=== PATIENT | female | born 1995 | race American Indian/Alaskan Native ===

== ENCOUNTER 2018-02-23 17:55 | Outpatient (CLI) | payer MEDICAID ==
[2018-02-23] MEDS ORDERED: LACTATED RINGERS 500 ML IV ONE (18:03)
[2018-02-23 18:37] VITALS: BP 116/60
[2018-02-23 19:58] LABS: Bilirubin,Urine NEG (Negative); Blood,Urine NEG (Negative); Color,Urine Yellow (Yellow); Mucus,Urine FEW /HPF; Protein,Urine <15 mg/dL mg/dL (Negative)
[2018-02-23] MEDS ORDERED: BRETHINE SUB-Q ONE (20:44)
[2018-02-23] MEDS ORDERED: BRETHINE ONE (21:04)
== END 2018-02-23 21:58 | disposition home or self-care (01) ==
LOC: TRG 17:55
PROVIDERS: ATTEND Obstetrics & Gynecology
DX: O47.02 False labor before 37 completed weeks of gestation, second trimester (principal); Z3A.29 29 weeks gestation of pregnancy
CPT/HCPCS: 36415; 59025; 81001; 82731; J3105; J7120

== ENCOUNTER 2018-03-25 12:44 | Inpatient (IN) | payer MEDICAID ==
[2018-03-25] MEDS ORDERED: NARCAN 0.4 MG/1 ML IV PRN (13:20)
[2018-03-25] MEDS ORDERED: BRETHINE IVP PRN (13:20)
[2018-03-25] MEDS ORDERED: POLYCILLIN/NS 2 GM/100 ML 2 GM/100 ML BAG IV ONE (13:20)
[2018-03-25] MEDS ORDERED: MINERAL OIL PO PRN (13:20)
[2018-03-25] MEDS ORDERED: PITOCin/NS 30 UNIT/500ML 30 UNITS/500 ML BAG IV SCH (13:20)
[2018-03-25] MEDS ORDERED: STADOL IV PRN (13:20)
[2018-03-25] MEDS ORDERED: BRETHINE SUB-Q PRN (13:20)
[2018-03-25] MEDS ORDERED: ePHEDrine SULFATE IV PRN (13:20)
[2018-03-25] MEDS ORDERED: XYLOCAINE 2% INFILTRATI ONE ×2 (13:20→20:40)
[2018-03-25] MEDS ORDERED: ZOFRAN IV PRN ×2 (13:20→22:30)
--- NOTE | 2018-03-25 13:29 | History and Physical Report ---
History of Present Illness Date of examination: 03/25/18 Chief complaint: rupture of membranes History of present illness: Pt is a 22 year old -Israeli primigravida GALE 05/05/18 at 34w1d who presents with rutpure of membranes since last night. She reports irregular contractions and denies vaginal bleeding. She has had care at [facility] since 17 wks complicated by two admissions for labor at [facility] s/ magnesium sulfate, two courses of betamethasone, with arrest at 5 cm at most recent admission in February 2018. She is GBS unknown. Past History Past Medical History: no pertinent history Past Surgical History: other (lymph node biopsy ) Family/Genetic History: cancer Social history: no significant social history - Obstetrical History Expected Date of Delivery: 05/05/18 Actual Gestation: 34 Week(s) 1 Day(s) : 1 Medications and Allergies Allergies Allergy/AdvReac Type Severity Reaction Status Date / Time No Known Allergies Allergy Unverified 02/23/18 18:03 Review of Systems All systems: negative - Vital Signs Vital signs: Vital Signs Temp Resp 99.4 F 18 03/25/18 13:14 03/25/18 13:14 Temp Pulse Resp BP Pulse Ox 99.4 F 18 03/25/18 13:14 03/25/18 13:14 - Physical Exam Breasts: Positive: deferred Cardiovascular: Regular rate Lungs: Positive: Clear to auscultation Abdomen: Positive: soft (gravid ) Genitourinary (Female): Positive: normal external genitalia Uterus: Positive: enlarged (gravid ) Extremities: Positive: normal - Obstetrical FHR: auscultation normal Cervical Dilatation: 5 (per RN ) Uterine Contraction Pattern: Irregular Uterine Tone Measurement Phase: Resting Uterine Contraction Intensity: Mild Results All other labs normal. Assessment and Plan A: IUP at 34w1d PPROM Advanced cervical dilation H/o labor with two admissions at [facility] s/ magnesium sulfate, betamethasone x 2 courses GBS unknown P: Admit to labor and delivery GBS prophylaxis Routine intrapartum care NICU aware Closely monitor maternal and status
[2018-03-25] MEDS ORDERED: PITOCin/NS 20 UNIT/1000ML DRIP 20 UNITS/1,000 ML BAG IV SCH ×2 (14:00→22:30)
[2018-03-25 14:27] LABS: Hematocrit 30.8 % (30.3-42.9); Hemoglobin 10.3 gm/dl (10.1-14.3); Mean Corpuscular HGB Conc 34 % (30-34); Mean Corpuscular Hemoglobin 30 pg (28-32); Mean Corpuscular Volume 89 fl (79-97); Platelet Count 253 K/mm3 (140-440); Red Blood Count 3.44 M/mm3 (3.65-5.03); Red Cell Distribution Width 13.6 % (13.2-15.2)
[2018-03-25] MEDS: LACTATED RINGERS 1,000 ML IV SCH ×2 (16:51→18:13)
[2018-03-25] MEDS ORDERED: AMPICILLIN/NS 1 GM/50 ML 1 GM/50 ML BAG IV SCH (17:22)
[2018-03-25] MEDS: SUBLIMAZE IV PRN ×2 (18:51→20:45)
[2018-03-25] MEDS ORDERED: METHERGINE IM ONE (21:04)
--- NOTE | 2018-03-25 21:40 | Procedure Note ---
OB Delivery Note - Delivery Date of Delivery: 03/25/18 Surgeon: CARTER MICHAEL Estimated blood loss: other (400 mL) - Vaginal Delivery presentation: vertex Delivery position: OP Intrapartum events: labor-<37 weeks, PROM->1hr before delivery, meconium , mult.variable deceleratio, uterine atony Delivery induction: oxytocin Delivery augmentation: pitocin Delivery monitor: external FHT, external uterine Route of delivery: Delivery placenta: spontaneous Episiotomy: none Delivery laceration: 2nd degree, vaginal side wall Delivery repair: vicryl Anesthesia: local, intravenous Delivery comments: Pt progressed to complete/complete/+2 and pushed to deliver a viable male over intact perineum via under IV anesthesia. Head delivered in LOP position, quickly followed by shoulders and body. placed on maternal abdomen and bulb suctioned. Cord clamped and cut and handed to NICU staff in attendance. Cord blood collected. Placenta delivered spontaneously. Vagina and perineum explored. Second degree perineal and vaginal side wall lacerations repaired with 2-0 and 3-0 Vicryl chuck a standard fashion. Uterus noted to be atonic at this time despite oxytocin infusion. Methergine 0.2 mg IM administered. Fundus firm and bleeding scant. EBL 400mL. - A at 1 minute: 8 at 5 minutes: 8 Gender: Male (2333g (5lb 2oz) @ 2033 pm)
[2018-03-25] MEDS ORDERED: BENADRYL PO PRN (22:30)
[2018-03-25] MEDS ORDERED: DULCOLAX PR PRN (22:30)
[2018-03-25] MEDS ORDERED: PHENERGAN PO PRN (22:30)
[2018-03-25] MEDS ORDERED: PHENERGAN PR PRN (22:30)
[2018-03-25] MEDS ORDERED: TUCKS PAD TP PRN (22:30)
[2018-03-25] MEDS ORDERED: DERMOPLAST TP PRN (22:30)
[2018-03-25] MEDS ORDERED: LANSINOH TP PRN ×2 (22:30)
[2018-03-25] MEDS ORDERED: MILK OF MAGNESIA PO PRN (22:30)
[2018-03-25] MEDS ORDERED: SODIUM CHLORIDE FLUSH SYRINGE 10 ML IV NR (22:30)
[2018-03-25] MEDS ORDERED: TYLENOL PO PRN (22:30)
[2018-03-25] MEDS: MOTRIN PO SCH (23:48)
[2018-03-26] MEDS ORDERED: METHERGINE IM ONE (00:02)
[2018-03-26] MEDS: COLACE PO SCH ×3 (00:07→22:40)
[2018-03-26] MEDS: FEOSOL PO SCH ×3 (00:07→22:39)
[2018-03-26] MEDS ORDERED: BOOSTRIX IM ONE (06:00)
[2018-03-26] MEDS ORDERED: M-M-R II VACCINE SUB-Q ONE (06:00)
[2018-03-26] MEDS: MOTRIN PO SCH ×3 (06:18→17:51)
[2018-03-26 10:58] LABS: Hematocrit 30.5 % (30.3-42.9)
--- NOTE | 2018-03-26 11:25 | Progress Note ---
Assessment and Plan A: PPD# 1 s/p at 34 wks, PPROM, h/o labor P: Routine care. Subjective - Subjective Date of service: 03/26/18 Principal diagnosis: s/p at 34 wks, PPROM, h/o labor Interval history: No overnight events. Patient reports: appetite normal, voiding normally, pain well controlled, ambulating normally : doing well, in NICU Objective - Vital Signs Latest vital signs: Vital Signs Temp Pulse Resp BP Pulse Ox 03/26/18 08:10 98.6 F 76 15 99/45 97 03/26/18 05:54 98.4 F 71 20 112/48 97 03/26/18 01:08 98.9 F 80 20 122/57 96 03/25/18 22:07 86 123/60 03/25/18 21:51 86 118/60 03/25/18 21:37 89 119/58 03/25/18 21:21 95 H 116/58 03/25/18 21:15 100.1 F H 03/25/18 21:07 97 H 128/57 03/25/18 20:52 115 H 132/63 03/25/18 20:45 20 03/25/18 20:37 129 H 146/61 03/25/18 20:23 102 H 147/55 03/25/18 20:07 88 126/59 03/25/18 19:37 96 H 133/60 03/25/18 19:21 86 113/57 03/25/18 19:08 82 108/52 03/25/18 18:52 79 127/62 03/25/18 18:00 98.6 F 16 03/25/18 17:21 81 104/51 03/25/18 17:00 98.1 F 18 03/25/18 14:32 88 114/61 03/25/18 13:14 99.4 F 18 Intake and Output 03/25/18 03/26/18 03/26/18 22:59 06:59 14:59 Intake Total 202.533 240 Output Total 300 Balance 202.533 -60 Intake: IV 202.533 Lactated Ringers 1,000 ml 170.833 @ 125 mls/hr IV DIRECT ELMA Rx#:[id number] PITOCin/NS 30 UNIT/500ML 31.700 30 units In 500 ml @ 2 mls/hr IV TITR ELMA Rx#: [id number] Oral 240 Output: Urine 300 Void 300 Other: Total, Intake Amount 240 Total, Output Amount 300 Estimated Blood Loss 400 - Exam Breasts: Present: deferred Cardiovascular: Present: Regular rate Lungs: Present: Clear to auscultation Abdomen: Present: soft Uterus: Present: fundal height at umbilicus Extremities: Present: normal - Labs Labs: Abnormal lab results 03/25/18 03/26/18 Range/Units 14:03 10:40 WBC 12.7 H (4.5-11.0) K/mm3 RBC 3.44 L (3.65-5.03) M/mm3 Hgb 10.0 L (10.1-14.3) gm/dl
[2018-03-26] MEDS: NORCO 5/325 PO PRN ×2 (11:34→22:40)
[2018-03-27] MEDS: NORCO 5/325 PO PRN ×2 (10:20→16:30)
[2018-03-27] MEDS: FEOSOL PO SCH (10:20)
[2018-03-27] MEDS: COLACE PO SCH (10:20)
[2018-03-27] MEDS: MOTRIN PO SCH (12:00)
--- NOTE | 2018-03-27 14:33 | Discharge Summary ---
Providers - Providers Date of Admission: 03/25/18 13:32 Date of discharge: 03/27/18 Attending physician: CARTER MICHAEL 03/25/18 22:30 Consult to Administrative Dietitian [CONS] Routine Reason For Exam: assistance with , SNS Primary care physician: CARTER MICHAEL Hospitalization Reason for admission: labor, IUP at term Delivery: Episiotomy: none Laceration: 2nd degree Other procedures: none Discharge diagnosis: IUP at term delivered baby: male Condition at discharge: Good Disposition: DC-01 TO HOME OR SELFCARE Plan - Discharge Medications Prescriptions: Ferrous Sulfate [Feosol 325 MG tab] 325 mg PO BID #60 tablet HYDROcodone/APAP 5-325 [[place] 5/325] 1 each PO Q6HR PRN #30 tablet PRN Reason: Pain Ibuprofen [Motrin] 800 mg PO Q8HR PRN #30 tablet PRN Reason: Pain, Moderate (4-6) - Provider Discharge Summary Activity: routine, no sex for 6 weeks, no heavy lifting 4 weeks, no strenuous exercise Diet: routine Additional instructions: [] Smoking cessation referral if applicable(refer to patient education folder for contact #) [] Refer to [facility] Booklet Call your doctor immediately for: * Fever > 100.5 * Heavy vaginal bleeding ( >1 pad per hour) * Severe persistent headache * Shortness of breath * Reddened, hot, painful area to leg or breast * Drainage or odor from incision. * Keep incision clean and dry at all times and follow doctor's instructions regarding bathing/showering - Follow up plan Follow up: CARTER MICHAEL MD [Primary Care Provider] - 14 Days
[2018-03-27 19:18] VITALS: BP 110/54
== END 2018-03-27 17:00 | disposition home or self-care (01) | DRG 775 ==
LOC: TRG 12:44 → LD 13:32 → OB 22:28
PROVIDERS: ADMIT Obstetrics & Gynecology; ATTEND Obstetrics & Gynecology
PROC: 10E0XZZ Delivery of Products of Conception, External Approach (ICD-10-PCS; principal; 2018-03-25)
PROC: 0KQM0ZZ Repair Perineum Muscle, Open Approach (ICD-10-PCS; 2018-03-25)
PROC: 3E0234Z Introduction of Serum, Toxoid and Vaccine into Muscle, Percutaneous Approach (ICD-10-PCS; 2018-03-26)
DX: O42.913 Preterm premature rupture of membranes, unspecified as to length of time between rupture and onset of labor, third trimester (principal); Z3A.34 34 weeks gestation of pregnancy; Z37.0 Single live birth; Z80.9 Family history of malignant neoplasm, unspecified; O70.1 Second degree perineal laceration during delivery; Z23 Encounter for immunization
CPT/HCPCS: 36415; 85014; 85018; 85027; 86592; 86850; 86900; 86901; 88307; 90471; 90715; 96372; 99211; G0008; G0463; J0290; J2210; J2590; J3010; J7120

== ENCOUNTER 2019-07-08 18:12 | Outpatient (CLI) | payer MEDICAID ==
[2019-07-08] MEDS ORDERED: LACTATED RINGERS 500 ML IV ONE (18:17)
[2019-07-08 18:30] VITALS: BP 108/58
[2019-07-08] MEDS ORDERED: CELESTONE SOLUSPAN IM SCH (18:30)
== END 2019-07-08 19:05 | disposition home or self-care (01) ==
LOC: TRG 18:12
PROVIDERS: ATTEND Obstetrics & Gynecology
DX: O26.893 Other specified pregnancy related conditions, third trimester (principal); Z3A.33 33 weeks gestation of pregnancy
CPT/HCPCS: 59025; 96372; J0702

== ENCOUNTER 2019-07-09 18:37 | Outpatient (CLI) | payer MEDICAID ==
[2019-07-09] MEDS ORDERED: CELESTONE SOLUSPAN IM ONE (18:59)
== END 2019-07-09 19:22 | disposition home or self-care (01) ==
LOC: TRG 18:37
PROVIDERS: ATTEND Obstetrics & Gynecology
DX: O47.03 False labor before 37 completed weeks of gestation, third trimester (principal); O09.213 Supervision of pregnancy with history of pre-term labor, third trimester; Z3A.33 33 weeks gestation of pregnancy
CPT/HCPCS: 96372; J0702

== ENCOUNTER 2019-07-17 01:34 | Inpatient (IN) | payer MEDICAID ==
[2019-07-17] MEDS ORDERED: LACTATED RINGERS 1,000 ML IV ONE (02:10)
[2019-07-17] MEDS ORDERED: ePHEDrine SULFATE 50 MG/1 ML INJ IV PRN (02:52)
[2019-07-17] MEDS ORDERED: ONDANSETRON 4 MG/2 ML INJ IV PRN ×2 (02:52→15:00)
[2019-07-17] MEDS ORDERED: AMPICILLIN/NS 2 GM/100 ML 2 GM/100 ML BAG IV ONE (02:52)
[2019-07-17] MEDS ORDERED: MINERAL OIL 30 ML ORAL LIQD PO PRN (02:52)
[2019-07-17] MEDS ORDERED: LIDOCAINE (2%) 20 MG/1 ML VIAL 20 ML MDV INFILTRATI ONE (02:52)
[2019-07-17] MEDS ORDERED: NALOXONE 0.4 MG/1 ML INJ IV PRN (02:52)
[2019-07-17] MEDS ORDERED: BUTORPHANOL 2 MG/1 ML INJ IV PRN (02:52)
[2019-07-17] MEDS ORDERED: TERBUTALINE 1 MG/1 ML INJ IVP PRN (02:52)
[2019-07-17] MEDS ORDERED: fentaNYL 100 MCG/2 ML INJ IV PRN (02:52)
[2019-07-17] MEDS ORDERED: TERBUTALINE 1 MG/1 ML INJ SUB-Q PRN (02:52)
[2019-07-17] MEDS ORDERED: BETAMET ACET/BETAMET NA PH 6 MG/ML INJ 5 ML MDV IM ONE (02:56)
[2019-07-17] MEDS ORDERED: OXYTOCIN 20 UNIT/1000ML DRIP 20 UNITS/1,000 ML BAG IV SCH ×2 (03:00→15:00)
[2019-07-17] MEDS: LACTATED RINGERS 1,000 ML IV SCH ×2 (04:00→05:32)
[2019-07-17 04:56] LABS: Hematocrit 29.1 % (30.3-42.9); Hemoglobin 9.7 gm/dl (10.1-14.3); Mean Corpuscular HGB Conc 33 % (30-34); Mean Corpuscular Volume 91 fl (79-97); Platelet Count 254 K/mm3 (140-440); Red Blood Count 3.18 M/mm3 (3.65-5.03); Red Cell Distribution Width 13.2 % (13.2-15.2)
[2019-07-17 05:24] LABS: Bacteria,Urine 1+ /HPF (Negative); Bilirubin,Urine NEG (Negative); Blood,Urine SM (Negative); Calcium Oxalate Crystals,Urine 3+; Color,Urine Yellow (Yellow); Mucus,Urine 2+ /HPF; Protein,Urine <15 mg/dL mg/dL (Negative); Urobilinogen,Urine < 2.0 mg/dL (<2.0)
[2019-07-17] MEDS: OXYTOCIN DRIP 30 UNITS/500 ML BAG IV SCH ×11 (08:03→13:44)
[2019-07-17] MEDS: AMPICILLIN/NS 1 GM/50 ML 1 GM/50 ML BAG IV SCH ×2 (08:04→12:41)
--- NOTE | 2019-07-17 13:24 | History and Physical Report ---
History of Present Illness Date of examination: 07/17/19 Date of admission: 07/17/19 02:11 Chief complaint: contractions History of present illness: Desiree is a 23 yo G P at weeks here for contractions. She was noted to be 5 cm and progressed to 6 cm with srom clear. She is patient of [facility]. Past History Past Medical History: other (h/o ptl) Past Surgical History: other (lymph node biopys) PATIENT TRANSPORTATION DRIVER History: chlamydia Social history: single. denies: smoking, alcohol abuse, prescription drug abuse - Obstetrical History Expected Date of Delivery: 08/20/19 Actual Gestation: 35 Week(s) 1 Day(s) : 2 Para: 1 Hx # Term Pregnancies: 0 Number of Pregnancies: 1 Spontaneous Abortions: 0 Induced : 0 Number of Living Children: 1 Medications and Allergies Allergies Allergy/AdvReac Type Severity Reaction Status Date / Time No Known Allergies Allergy Verified 07/08/19 18:17 Home Medications Medication Instructions Recorded Confirmed Last Taken Type Pnv No.95/Ferrous Fum/Folic AC 1 each PO DAILY 03/25/18 07/17/19 07/06/19 History [ Formula Tablet] Active Meds: Active Medications Butorphanol Tartrate (Stadol) 2 mg IV Q2H PRN PRN Reason: Pain , Severe (7-10) Ephedrine Sulfate (Ephedrine Sulfate) 10 mg IV Q2M PRN PRN Reason: Hypotension Fentanyl (Sublimaze) 100 mcg IV Q2H PRN PRN Reason: Labor Pain Oxytocin/Sodium Chloride (Pitocin/Ns 20 Unit/1000ml Drip) 20 units in 1,000 mls @ 125 mls/hr IV DIRECT [facility]MA Oxytocin/Sodium Chloride (Pitocin/Ns 30 Unit/500ml) 30 units in 500 mls @ 2 mls/hr IV TITR [facility]MA; Protocol Last Admin: 07/17/19 12:49 Dose: 11 ml/hr, 11 mls/hr Documented by: Lactated Ringer's (Lactated Ringers) 1,000 mls @ 125 mls/hr IV DIRECT [facility]MA Last Admin: 07/17/19 05:32 Dose: 125 mls/hr Documented by: Ampicillin Sodium (Ampicillin/Ns 1 Gm/50 Ml) 1 gm in 50 mls @ 100 mls/hr IV Q4HR ELMA; Protocol Last Admin: 07/17/19 12:41 Dose: 100 mls/hr Documented by: Mineral Oil (Mineral Oil) 30 ml PO QHS PRN PRN Reason: Constipation Naloxone HCl (Naloxone) 0.1 mg IV Q2MIN PRN PRN Reason: Res Rate </= 8 or 02 SAT < 92% Ondansetron HCl (Zofran) 4 mg IV Q8H PRN PRN Reason: Nausea And Vomiting Terbutaline Sulfate (Brethine) 0.25 mg SUB-Q ONCE PRN PRN Reason: Hyperstimulation/Hypertonicity Terbutaline Sulfate (Brethine) 0.25 mg IVP ONCE PRN PRN Reason: Hyperstimulation/Hypertonicity Review of Systems All systems: negative Genitourinary: contractions - Vital Signs Vital signs: Vital Signs Temp Pulse Resp BP 98.4 F 91 H 18 109/62 07/17/19 02:03 07/17/19 02:03 07/17/19 02:03 07/17/19 02:03 Temp Pulse Resp BP Pulse Ox 98.1 F 81 14 108/56 07/17/19 08:05 07/17/19 12:51 07/17/19 08:05 07/17/19 12:51 - Physical Exam Breasts: Positive: normal Cardiovascular: Regular rate, Normal S1 Lungs: Positive: Clear to auscultation, Normal air movement Abdomen: Positive: normal appearance, soft, normal bowel sounds. Negative: distention, tenderness, guarding Genitourinary (Female): Positive: normal external genitalia, normal perenium Vulva: both: normal Vagina: Positive: normal moisture Uterus: Positive: normal size Anus/Rectum: Positive: normal perianal skin Extremities: Positive: normal Deep Tendon Reflex Grade: Normal +2 - Obstetrical Cervical Dilatation: 5 Cervical Effacement Percentage: 100 station: -1 Uterine Tone Measurement Phase: Contraction Uterine Contraction Intensity: Moderate Results Result Diagrams: 07/17/19 04:00 Abnormal lab results 07/17/19 07/17/19 Range/Units 04:00 04:00 RBC 3.18 L (3.65-5.03) M/mm3 Hgb 9.7 L (10.1-14.3) gm/dl Hct 29.1 L (30.3-42.9) % Urine WBC (Auto) 7.0 H (0.0-6.0) /HPF All other labs normal. Assessment and Plan A/P HD#1 IUP 35 weeks PTL PPROM IVF, s/p two doses of bmz and resuscue dose of BMZ AROM clear Amp for GBS prophylaxis Pitocin for augmentation expect vaginal delivery
[2019-07-17] MEDS ORDERED: diphenhydrAMINE 25 MG CAP PO PRN (15:00)
[2019-07-17] MEDS ORDERED: cefTRIAXone/NS 1 GM/50 ML 1 GM/50 ML BAG IV SCH (15:00)
[2019-07-17] MEDS ORDERED: BISACODYL 10 MG RECT SUPP PR PRN (15:00)
[2019-07-17] MEDS ORDERED: LANOLIN/ZINC/DIMETHICONE (LANSINOH) 7 GM TP PRN (15:00)
[2019-07-17] MEDS ORDERED: KETOROLAC 30 MG/1 ML INJ IV PRN (15:00)
[2019-07-17] MEDS ORDERED: PROMETHAZINE 25 MG TAB PO PRN (15:00)
[2019-07-17] MEDS ORDERED: PROMETHAZINE 25 MG RECT SUPP PR PRN (15:00)
[2019-07-17] MEDS ORDERED: OXYTOCIN 10 UNIT/1 ML INJ ONE (15:00)
[2019-07-17] MEDS ORDERED: WITCH HAZEL/ GLYCERIN PAD TP PRN (15:00)
--- NOTE | 2019-07-17 15:04 | Procedure Note ---
OB Delivery Note - Delivery Date of Delivery: 07/17/19 Surgeon: DEBBIE VALERA Estimated blood loss: 200cc - Vaginal Delivery presentation: vertex Delivery position: OA Delivery augmentation: rupture of membranes, pitocin Delivery monitor: external FHT, external uterine Route of delivery: Delivery placenta: spontaneous Delivery cord: 3 umbilical vessels Episiotomy: none Delivery laceration: none Anesthesia: none Delivery comments: Excellent maternal effort resulted in of vigorous female at 1450 . Apgars 8/9. to maternal abdomen. Placenta delivered spontaneously and intact at 1455. Pitocin infusing. Cord clamped and cut. Bulb suction on abdomen. No lacerations noted. EBL 300cc. - A at 1 minute: 8 at 5 minutes: 8 Gender: Female (5 pounds 5 oz)
[2019-07-17] MEDS ORDERED: ACETAMINOPHEN 325 MG TAB PO PRN (17:00)
[2019-07-17] MEDS: HYDROcodone/ACETAMINOPHEN 5-325 MG TAB PO PRN (19:06)
[2019-07-17] MEDS: IBUPROFEN 600 MG TAB PO SCH (21:51)
[2019-07-17] MEDS: DOCUSATE SODIUM 100 MG CAP PO SCH (21:51)
[2019-07-17] MEDS ORDERED: MAGNESIUM HYDROXIDE (MOM) ORAL LIQD UDC PO PRN (22:00)
[2019-07-17] MEDS: oxyCODONE /ACETAMINOPHEN 5-325MG TAB PO PRN (23:07)
[2019-07-18 04:40] LABS: Hematocrit 30.7 % (30.3-42.9)
[2019-07-18] MEDS: IBUPROFEN 600 MG TAB PO SCH ×4 (04:59→22:03)
[2019-07-18] MEDS: PRENATAL VIT27-FE FUMARATE-FOLIC ACID VIT TAB PO SCH (10:01)
[2019-07-18] MEDS: DOCUSATE SODIUM 100 MG CAP PO SCH ×2 (10:01→22:03)
[2019-07-18] MEDS ORDERED: TETANUS,DIPH,PERTUSS(ACELL) VACCINE 0.5 ML SYRINGE IM ONE (15:00)
[2019-07-18] MEDS ORDERED: MEASLES, MUMPS & RUBELLA 12,500 UNIT/0.5 ML VACCINE SUB-Q ONE (15:00)
--- NOTE | 2019-07-18 15:41 | Progress Note ---
Assessment and Plan PPD 1 s/p . Doing well. Pt delivered at 1500 yesterday. Will plan for discharge on tomorrow. Subjective - Subjective Date of service: 07/18/19 Patient reports: appetite normal, voiding normally, pain well controlled, ambulating normally [place]: doing well Objective - Vital Signs Latest vital signs: Vital Signs Temp Pulse Resp BP BP Pulse Ox 07/18/19 08:40 98 F 72 20 102/52 07/18/19 04:59 18 07/18/19 00:45 98.3 F 89 20 98/48 96 07/18/19 00:07 18 07/17/19 23:07 18 07/17/19 22:51 18 07/17/19 21:55 98.0 F 85 18 106/45 97 07/17/19 21:51 18 07/17/19 20:06 18 07/17/19 17:12 98.0 F 82 16 106/46 96 07/17/19 16:42 97.7 F 07/17/19 16:20 88 122/64 07/17/19 16:05 86 121/63 07/17/19 16:00 90 18 129/63 07/17/19 15:50 90 129/63 07/17/19 15:45 78 18 113/57 Intake and Output 07/18/19 07/18/19 07/18/19 06:59 14:59 22:59 Intake Total 720 360 Output Total 800 600 Balance -80 -240 Intake: Oral 360 Intake, Free Water 720 Output: Urine 800 600 Void 800 600 Other: Total, Intake Amount 360 Total, Output Amount 800 600 - Exam Breasts: Present: deferred Cardiovascular: Present: Regular rate, Normal S1, Normal S2 Lungs: Present: Clear to auscultation, Normal air movement Abdomen: Present: normal appearance, soft, normal bowel sounds Vulva: both: normal Uterus: Present: normal, firm Extremities: Present: normal - Labs Labs: Abnormal lab results 07/18/19 Range/Units 03:31 Hgb 10.0 L (10.1-14.3) gm/dl
--- NOTE | 2019-07-18 15:43 | Discharge Summary ---
Providers - Providers Date of Admission: 07/17/19 02:11 Date of discharge: 07/18/19 Attending physician: CARTER MICHAEL Primary care physician: CARTER MICHAEL Hospitalization Reason for admission: active labor Delivery: Other procedures: none complications: none Discharge diagnosis: IUP at term delivered baby: female Hospital course: unremarkable Condition at discharge: Good Disposition: DC-01 TO HOME OR SELFCARE Plan - Discharge Medications Prescriptions: Ibuprofen [Motrin] 800 mg PO Q8HR PRN #40 tablet PRN Reason: Pain, Moderate (4-6) HYDROcodone/APAP 5-325 [[place] 5/325] 1 each PO Q4HR PRN #20 tablet PRN Reason: Pain - Provider Discharge Summary Activity: routine, no sex for 6 weeks, no heavy lifting 4 weeks, no strenuous exercise Diet: routine Instructions: routine Additional instructions: [] Smoking cessation referral if applicable(refer to patient education folder for contact #) [] Refer to [facility] Booklet Call your doctor immediately for: * Fever > 100.5 * Heavy vaginal bleeding ( >1 pad per hour) * Severe persistent headache * Shortness of breath * Reddened, hot, painful area to leg or breast * Drainage or odor from incision. * Keep incision clean and dry at all times and follow doctor's instructions regarding bathing/showering - Follow up plan Follow up: CARTER MICHAEL MD [Primary Care Provider] - 6 Weeks
[2019-07-18] MEDS: oxyCODONE /ACETAMINOPHEN 5-325MG TAB PO PRN (22:09)
[2019-07-19] MEDS: IBUPROFEN 600 MG TAB PO SCH (04:35)
[2019-07-19] MEDS: oxyCODONE /ACETAMINOPHEN 5-325MG TAB PO PRN (06:08)
[2019-07-19] MEDS: PRENATAL VIT27-FE FUMARATE-FOLIC ACID VIT TAB PO SCH (09:35)
[2019-07-19] MEDS: DOCUSATE SODIUM 100 MG CAP PO SCH (09:36)
[2019-07-19] MEDS: HYDROcodone/ACETAMINOPHEN 5-325 MG TAB PO PRN (13:31)
[2019-07-19 13:33] VITALS: BP 102/48
--- NOTE | 2019-07-20 08:35 | Event Note ---
Date: 07/20/19 Pt initially considering adoption, however pt had decided not to choose adoption 8 wks ago.
== END 2019-07-19 14:00 | disposition home or self-care (01) | DRG 775 ==
LOC: TRG 01:34 → LD 02:11 → OBSVTOIN 02:11 → OB 18:34
PROVIDERS: ADMIT Obstetrics & Gynecology; ATTEND Obstetrics & Gynecology
PROC: 10E0XZZ Delivery of Products of Conception, External Approach (ICD-10-PCS; principal; 2019-07-17)
PROC: 10907ZC Drainage of Amniotic Fluid, Therapeutic from Products of Conception, Via Natural or Artificial Opening (ICD-10-PCS; 2019-07-17)
PROC: 3E0234Z Introduction of Serum, Toxoid and Vaccine into Muscle, Percutaneous Approach (ICD-10-PCS; 2019-07-18)
DX: O42.913 Preterm premature rupture of membranes, unspecified as to length of time between rupture and onset of labor, third trimester (principal); Z23 Encounter for immunization; Z3A.35 35 weeks gestation of pregnancy; Z37.0 Single live birth
CPT/HCPCS: 36415; 81001; 85014; 85018; 85027; 86850; 86900; 86901; 96360; 96361; 96365; 96368; 96372; G0378; J0290; J0696; J0702; J2590; J3010; J7120